=== PATIENT | male | born 1930 | race Caucasian/White ===

== ENCOUNTER 2019-09-09 11:27 | Emergency (ER) | payer MEDICARE ==
[~2019-09-09] VITALS: Ht 175.3 cm; Wt 86.5 kg
[~2019-09-09 11:27] MED LIST: ASPIRIN 32325 MG/TAB PO; CEPHALEXIN500 M1 PO; KLONOPIN 1MG1 MG PO; LIPITOR 10MG10 MG PO; PRILOTC PO; PRINZIDE 12.5 M1 TAB PO; SINGULAIR 110 MG/TAB PO; ZESTRIL 10MG10 MG PO
[2019-09-09 11:31] VITALS: TEMP 96.3
[2019-09-09 11:48] LABS: BASO # 0.1 (0.0-0.2); BASO % 0.8 % (0.0-2.0); EOS # 0.2 (0.0-0.7); EOS % 2.9 % (0-4.0); GRAN % 63.4 % (42.2-75.2); HEMATOCRIT 38.3 % (42.0-52.0); LYMPH # 1.4 (1.2-3.4); LYMPH % 21.6 % (20.0-51.0); MEAN CELL VOLUME 93 fl (80.0-100.0); MEAN CORPUSCULAR HEMOGLOBIN 32 pg (27.0-31.0); MEAN CORPUSCULAR HGB CONC 34 g/dl (33.0-37.0); MEAN PLATELET VOLUME 10.8 fl (7.4-10.4); MONO # 0.7 (0.1-0.6); PLATELET COUNT 205 K/mm3 (130-400); RED BLOOD COUNT 4.13 M/mm3 (4.20-5.60); REDCELL DISTRIBUTION WIDTH-CV 11.9 % (11.5-14.5)
[2019-09-09 12:35] LABS: PROTHROMBIN TIME 11.5 SECONDS (9.7-12.8)
[2019-09-09 12:39] LABS: ALANINE AMINOTRANSFERASE 42 U/L (21-72); ALBUMIN 4.1 gm/dL (3.5-5.0); ALKALINE PHOSPHATASE 70 U/L (50-136); ANION GAP 7 mmol/L (7-16); AST,SGOT 32 U/L (15-37); BILIRUBIN,TOTAL 0.4 mg/dL (0.0-1.0); BLOOD UREA NITROGEN 35 mg/dL (9-20); CALCIUM 9.4 mg/dL (8.4-10.2); CARBON DIOXIDE 28 mmol/L (22-30); CHLORIDE 106 mmol/L (98-107); CREATININE, serum 1.25 (0.66-1.25); GLUCOSE 109 mg/dL (74-106); POTASSIUM 4.7 mmol/L (3.4-5.0); SODIUM 141 mmol/L (137-145); TOTAL PROTEIN 6.7 gm/dL (6.4-8.2)
[2019-09-09 12:51] LABS: TROPONIN-I < 0.012 ng/mL (0.000-0.035)
[2019-09-09 13:40] VITALS: BP 116/84; PULSE 82
== END 2019-09-09 13:44 | disposition home or self-care (01) ==
LOC: COL.ER 11:27
PROVIDERS: Emergency Medicine
DX: R00.8 Other abnormalities of heart beat (principal); I25.10 Atherosclerotic heart disease of native coronary artery without angina pectoris; Z95.5 Presence of coronary angioplasty implant and graft; Z79.82 Long term (current) use of aspirin

== ENCOUNTER → 2020-02-27 | Outpatient (CLI) | payer MEDICARE | LOC: COL.RAD 07:32 | DX: Z01.812 Encounter for preprocedural laboratory examination (principal); K80.20 Calculus of gallbladder without cholecystitis without obstruction; K57.30 Diverticulosis of large intestine without perforation or abscess without bleeding | CPT/HCPCS: Q9967 ==